=== PATIENT | female | born 1975 ===

== ENCOUNTER 2020-07-20 16:14 | Outpatient (REF) | payer OTHER, SELFPAY ==
[2020-07-20 16:52] LABS: MANUAL DIFF FLAG NO
[2020-07-20 16:54] LABS: Basophils Percent Auto 0.5 % (0-2); Eosinophils Absolute Auto 0.2 X10*3/uL (0.0-0.4); Eosinophils Percent Auto 2.4 % (0-4); Hematocrit 35.5 % (37-47); Hemoglobin 10.3 g/dl (12.0-16.0); Imm Gran Abs Auto 0.03 X10*3/uL (0.00-0.03); Imm Gran Pct Auto 0.5 % (0.0-0.4); Lymphocytes Absolute Auto 1.8 X10*3/uL (1.2-4.9); Lymphocytes Percent Auto 28.8 % (20-40); Mean Corpuscular Hemoglobin 21.1 pg (27.0-33.0); Mean Corpuscular Volume 72.7 fL (80-98); Mean Platelet Volume 9.3 fL (9.4-12.3); Monocytes Absolute Auto 0.4 X10*3/uL (0.1-1.2); Monocytes Percent Auto 6.3 % (2-11); Neutrophils Absolute Auto 3.8 X10*3/uL (2.0-8.3); Neutrophils Percent Auto 61.5 % (45-73); Platelet Count 452 X10*3/uL (160-400); Red Blood Count 4.88 X10*6/uL (4.20-5.50); Red Cell Distribution Width 18.8 % (11.0-16.0); White Blood Count 6.2 X10*3/uL (4.8-10.8)
[2020-07-20 17:04] LABS: D Dimer 244 NG/ML
[2020-07-20 17:18] LABS: Alanine Aminotransferase 11 U/L (0-31); Albumin Level 4.2 g/dL (3.5-5.0); Alkaline Phosphatase 94 U/L (39-117); Aspartate Amino Transferase 16 U/L (5-31); Bilirubin Total 0.3 mg/dL (0.0-1.0); Blood Urea Nitrogen 14 mg/dL (9-16); Estimated Glomerular Filt Rate > 60; Glucose Random 100 mg/dL (60-115); Total Protein 7.4 g/dL (6.5-8.0)
[2020-07-20 17:22] LABS: Anion Gap 11 (12-20); Carbon Dioxide 26 mmol/L (22-29); Chloride 106 mmol/L (96-108); Potassium 4.4 mmol/L (3.3-5.1); Sodium 139 mmol/L (135-145)
[2020-07-20 17:24] LABS: B Type Natriuretic Peptide 45 pg/mL (<100); Troponin-I High Sensitivity < 3.5 ng/L (<3.5-17.0)
[2020-07-20 17:39] LABS: TSH reflex Free T4 1.91 uIU/mL (0.32-4.0)
== END 2020-07-20 16:15 | disposition home or self-care (01) ==
LOC: HO.LAB 16:14
PROVIDERS: PCP Internal Medicine; Visit Provider Nurse Practitioner Family
DX: I49.8 Other specified cardiac arrhythmias (principal)
CPT/HCPCS: 36415; 80053; 83880; 84443; 84484; 85025; 85379

== ENCOUNTER 2020-07-24 11:31 | Outpatient (REF) | payer OTHER, SELFPAY ==
--- NOTE | ~2020-07-24 | US_ITS ---
EXAMINATION: US VENOUS ULTRASOUND WITH DOPPLER LOWER EXTREMITY, LEFT CLINICAL INFORMATION: Pain left lower leg COMPARISON: None TECHNIQUE: Ultrasound of the deep veins is performed from the hip to the calf with compression sonography and color and pulse Doppler assessment. Spectral analysis with color-flow imaging is performed. FINDINGS: There is normal venous compression and respiratory variation and augmented flow. The visualized common femoral vein, superficial femoral vein, profunda femoral vein, popliteal vein, and the trifurcation region shows no evidence of deep venous thrombosis. There is no significant popliteal fossa cyst. If the patient's symptoms persist, followup ultrasound in 5 days 7 days might be of value to exclude proximal propagation from a non-visualized calf vein. US/US venous duplex LE LT IMPRESSION: No DVT demonstrated in the left lower extremity.
== END 2020-07-24 11:32 | disposition home or self-care (01) ==
LOC: HO.HMGCX 11:31
PROVIDERS: PCP Internal Medicine; Visit Provider Nurse Practitioner Family
DX: M79.662 Pain in left lower leg (principal)
CPT/HCPCS: 93971

== ENCOUNTER 2020-11-18 15:45 | Outpatient (REF) | payer OTHER, SELFPAY ==
--- NOTE | ~2020-11-18 | US_ITS ---
EXAMINATION: US VENOUS ULTRASOUND WITH DOPPLER LOWER EXTREMITY, RIGHT CLINICAL INFORMATION: Right leg pain COMPARISON: None TECHNIQUE: Ultrasound of the deep veins is performed from the hip to the calf with compression sonography and color and pulse Doppler assessment. Spectral analysis with color-flow imaging is performed. FINDINGS: There is normal venous compression and respiratory variation and augmented flow. The visualized common femoral vein, superficial femoral vein, profunda femoral vein, popliteal vein, and the trifurcation region shows no evidence of deep venous thrombosis. There is superficial thrombophlebitis seen in a varicosity arising from the greater saphenous vein in the distal thigh and below the knee . US/US venous duplex LE RT IMPRESSION: No DVT demonstrated in the right lower extremity. Superficial thrombophlebitis. Findings were communicated by the nuclear medicine chief technologist at the completion of the exam.
== END 2020-11-18 15:46 | disposition home or self-care (01) ==
LOC: HO.HMGCX 15:45
PROVIDERS: PCP Internal Medicine; Visit Provider Nurse Practitioner Family
DX: M79.604 Pain in right leg (principal); M79.89 Other specified soft tissue disorders
CPT/HCPCS: 93971

== ENCOUNTER → 2020-12-01 13:31 | Outpatient (REF) | payer OTHER, SELFPAY ==
--- NOTE | 2020-12-01 13:45 | ECG_ITS ---
Hook-up date: 2020-12-01 13:37:00 Duration: 47:59:00 Test Indications: ARRHYTHMIAS Medications: 939111 QRS complexes 4 Ventricular ectopics which represent <1 % of total QRS comp. 66 Supraventricular ectopics which represent <1 % of total QRS comp. * Paced QRS complexs which represent % of total QRS comp. VENTRICULAR ECTOPY 4 Isolated 0 Bigeminal Cycles 0 Couplets 0 Runs 0 Beats in Runs * Beats LONGEST at * BPM at :: -- * Beats FASTEST at * BPM at :: -- SUPRAVENTRICULAR ECTOPY 55 Isolated 1 Couplets 2 Runs 9 Beats in Runs 6 Beats LONGEST at 127 BPM at 09:26:42 2020-12-02 6 Beats FASTEST at 127 BPM at 09:26:42 2020-12-02 HEART RATES 58 MIN at 09:05:58 2020-12-02 88 AVG 154 MAX at 13:40:33 2020-12-01 LONGEST RR 1.0720 secs at 09:05:57 2020-12-02 S-T LEVELS Channel 1 - 128 mm at 13:37:00 2020-12-01 - 128 mm at 13:37:00 2020-12-01 Channel 2 - 128 mm at 13:37:00 2020-12-01 - 128 mm at 13:37:00 2020-12-01 Channel 3 - 128 mm at 03:25:61 -- - 128 mm at 03:25:61 Underlying rhythm is sinus; Average ventricular rate 88/min; range 58-154/min; Rare Premature atrial complexes ; Premature ventricular complexes ; No sustained arrhythmias; Patient did not report any symptoms in the diary Referred By: Lanie Gates Overread By: CHIVO HUANG
== END ==
LOC: HO.CARD 13:31
PROVIDERS: Visit Provider Nurse Practitioner Family
DX: I49.8 Other specified cardiac arrhythmias (principal)
CPT/HCPCS: 93225; 93226

== ENCOUNTER 2021-12-30 21:25 | Emergency (ER) | payer OTHER, SELFPAY ==
--- NOTE | ~2021-12-30 | CT_ITS ---
EXAMINATION: CT HEAD WITHOUT CONTRAST CLINICAL INFORMATION: Numbness. COMPARISON: None TECHNIQUE: Contiguous axial imaging was performed from the skull base to vertex without intravenous administration of contrast. Coronal and sagittal reformatted images are performed at CT scanner This CT examination was performed using dose optimization techniques as appropriate, variously including the following: *Automated exposure control *Adjustment of mA and/or kV according to patient size (this includes techniques or standardized protocols for targeted exams where dose is matched to indication/reason for exam; i.e. extremities or head) *Use of iterative reconstruction technique DLP: 672 mGy-cm FINDINGS: There is no evidence of acute intracranial hemorrhage or territorial infarction. No abnormal mass effect or midline shift is seen. Shanks to white matter differentiation is well preserved. No extra-axial fluid collections are identified. The ventricles are normal in size. There is no abnormal attenuation within the brain parenchyma. The osseous structures and soft tissues are normal. The mastoid air cells and visualized portions of the paranasal sinuses are well aerated. CT/CT head/brain wo con IMPRESSION: No acute intracranial pathology.
[2021-12-30 21:29] VITALS: BP 136/80; PULSE 117; RESP 18; TEMP 36.6; O2SAT 98; BMI 51.1
--- NOTE | 2021-12-30 21:53 | ED_ITS ---
HPI - Neuro Symptoms/Deficit General Chief Complaint: Neuro Symptoms/Deficit Stated Complaint: Numbness and weakness left side Time Seen by Provider: 12/30/21 21:53 Source: patient Mode of arrival: ambulatory Limitations: no limitations History of Present Illness HPI Narrative: Patient has remote history of migraine with occasional headaches took cannabis bite instead of 1, took 2 of them and went to sleep at 16:00 woke up 2 hours prior to arrival and noticed funny feeling on the left side no weakness had difficulty in speaking, at the time of arrival patient speaking normal no deficit was noticed patient ambulatory patient denies any headache no nausea no vomiting denies any anxiety Related Data Home Medications Medication Instructions Recorded Confirmed aspirin 81 mg tablet,delayed 243 mg PO DAILY 11/23/20 release Previous Rx's Medication Instructions Recorded ibuprofen 600 mg tablet 600 mg PO TID 7 days #21 tabs 11/23/20 Allergies Allergy/AdvReac Type Severity Reaction Status Date / Time hydrocodone [From VICODIN] Allergy Intermediate N/V Verified 12/30/21 21:29 DIZZINESS oxycodone [From PERCOCET] Allergy Intermediate N/V, Verified 12/30/21 21:29 DIZZINESS acetaminophen [Percocet] Allergy Unknown GI upset Verified 12/30/21 21:29 Pt states no food allergies Allergy Unknown unknown Uncoded 11/23/20 16:33 Review of Systems Review of Systems: Yes all other systems are reviewed and are negative [facility] Social History Social History Advance Directives: No Advance Directives Information Provided: No Physical Exam Vital Signs: Vital Signs: Last Vital Signs Temp 98.5 F 12/30/21 22:17 Pulse 89 12/30/21 22:17 Resp 18 12/30/21 22:17 BP 129/74 12/30/21 22:17 Pulse Ox 99 12/30/21 22:17 O2 Del Method 12/30/21 22:17 BMI result Body Mass Index 51.1 Appearance: Alert. Oriented X3. No acute distress. And Eyes: PERRLA, No Nystagmus ENT: Pharynx normal. Oral Mucosa moist Neck: Normal inspection. Neck supple. CVS: Normal heart rate and rhythm. Pulses normal. Respiratory: No respiratory distress. Equal air entry bilateral, no wheezing/rales/rhonchi Abdomen: Soft and nontender. Bowel sounds are present, no mass palpable, no CVA tenderness Skin: Skin warm and dry. Normal skin color. Normal skin turgor. Extremities: No lower extremity edema. No calf tenderness Neuro: Oriented X 3. No motor deficit. No sensory deficit.No cerebellar signs , cranial nerves II-XII intact MDM - Neuro Symptoms/Deficit MDM Narrative Medical decision making narrative: Patient with atypical symptoms no signs of severe patient took cannabis bites which is just started taking them instead of taking 1-2 of them likely the cause weak feeling with the CT head rule out CVA which is clinically unlikely head Ct neg for acute Lab Data Labs: Lab Results 12/30/21 Range/Units 22:10 POC Glucose 89 (60-115) mg/dL NIH Stroke Scale Internal: Initial- Upon Arrival Level of Consciousness: Alert Level of Consciousness Questions: Answers both questions correctly Level of Consciousness Commands: Performs both tasks correctly Best Gaze: Normal Visual: No visual loss Facial Palsy: Normal Motor Arm (Right): No drift Motor Arm (Left): No drift Motor Leg (Right): No drift Motor Leg (Left): No drift Limb Ataxia: Absent Sensory: Normal Best Language: No aphasia Dysarthia: Normal Extinction and Inattention: No abnormality Score: 0 Discharge Plan Discharge Clinical Impression: Side effect of drug Patient Disposition: Home, Self-Care Instructions: Adverse Drug Reaction (ED) Additional Instructions: Your symptoms likely from use of cannabis bites Do not take cannabis bites if give you symptoms Prescriptions: No Action aspirin 81 mg tablet,delayed release (DR/EC) 243 mg PO DAILY ibuprofen 600 mg tablet 600 mg PO TID 7 Days Qty: 21 0RF Interventions: ED Discharge Assessment Last Done: 12/30/21 23:18 Discharge Date/Time: 12/30/21 23:20
[2021-12-30 22:14] LABS: Glucose, Whole Blood 89 mg/dL (60-115)
[2021-12-30 22:17] VITALS: BP 129/74; PULSE 89; RESP 18; TEMP 36.9; O2SAT 99
== END 2021-12-30 23:20 | disposition home or self-care (01) ==
PROVIDERS: Emergency Provider Internal Medicine; PCP Internal Medicine
DX: R53.1 Weakness (principal); T40.715A Adverse effect of cannabis, initial encounter; Y92.9 Unspecified place or not applicable
CPT/HCPCS: 70450; 82947; 99283; 99284

== ENCOUNTER 2024-02-07 13:08 | Outpatient (AMB) | payer OTHER, SELFPAY ==
--- NOTE | 2024-02-07 13:11 | A.OFFPC_ITS ---
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 MANAGER MARKETING- semaglutide (weight loss) 2.4 mg subcut QWEEK Tobacco use date assessed: 02/07/24 Dental Screening Dental Screen Date: 02/07/24 Did you have a dental visit in the last 12 months?: Yes Did you have a dental problem in the last 6 months where you did not have access to dental care?: No Was dental information given to patient?: Patient has dentist HPI HPI Comments History of Present Illness Details 48-year-old female with migraines, right lower leg superficial thrombophlebitis (2020), PAC & PVC (holter 2020), anemia, obesity, insomnia, rectocele, Vit d def, iron def anemia s/p gastric bypass x 2, panniculectomy, breast lift Social: 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 Reports that she has not had routine medical care in several years. She is currently taking semaglutide that she has been paying for out of her pocket from the [employer] shop in [place]. Her current dosing is around 2 mg. She would like to have this filled She is on no other medications; aware she should be taking at least a multivitamin status post gastric bypass. Reports a history of anemia however had GI upset & constipation with the iron so she stopped taking. Has a rectocele & would like this looked at by GI. Suffers from insomnia, taking Benadryl and Tylenol PM to sleep. Reports that she has tried Ambien in the past and had memory issues. Opth: wears glasses, UTD on eye exam 2023 Plan screening labs today - see below. Start Vitamin D QD, MVI with Iron. Repeat labs in 4 months. Start Trazodone 25 mg po PRN insomnia Tdap administered Mammogram ordered Gastroenterology and herpetology teacher referrals placed Return to the office in 4 weeks to follow up on labs as well as treatment for insomnia, sooner as needed [facility] Medical History (Updated 02/08/24 @ 16:27 by Margie Riley SR. MANAGER MARKETING-) Palpitations No pertinent family history Arthritis GERD (gastroesophageal reflux disease) Surgical History (Updated 02/07/24 @ 14:02 by Edward Mckenna MA) Hx of breast reduction, elective S/P panniculectomy H/O gastric bypass Family History (Updated 02/07/24 @ 13:17 by Edward Mckenna MA) Mother Mental health disorder Substance abuse Social History (Updated 02/07/24 @ 13:18 by Edward Mckenna MA) Household Members: Spouse and Children Both parents involved: No Caregiver staying overnight: No Housing: Apartment Are you a primary career services manager to a significant other at home: No Do you presently have visiting nurse or other home services: No 75 years or older and lives alone: No Patient Tobacco Use Status: Never used Tobacco e-Cigarette/Vaping Use: Never Used service: No Current occupational status: employed Current occupation: RN Cognitive needs: No Hearing needs: No Vision needs: No Questionnaire PHQ-9 Over the last 2 weeks, how often have you been bothered by any of the following problems? 1. Little interest or pleasure in doing things: not at all 2. Feeling down, depressed, or hopeless: not at all 3. Trouble falling or staying asleep, or sleeping too much: nearly every day 4. Feeling tired or having little energy: more than half the days 5. Poor appetite or overeating: more than half the days 6. Feeling bad about yourself - or that you are a failure or have let yourself or your family down: not at all 7. Trouble concentrating on things, such as reading the newspaper or watching television: not at all 8. Moving or speaking so slowly that other people could have noticed. Or the opposite - being so fidgety or restless that you have been moving around a lot more than usual: not at all 9. Thoughts that you would be better off or of hurting yourself in some way: not at all Total score: 7 Depression Screening Interpretation: Negative Depression Screening Done: Yes 40545 - PHQ-9 Billing: Yes Source: Developed by Drs. Geovanny Chaudhary, Avril Sarmiento, Pravin Browne and colleagues, with an educational david from [employer]. Thrive Questionnaire Date Thrive assessed: 02/07/24 I am a: Patient What is your living situation today?: I have a steady place to live Within the past 12 months, did the food you bought not last and you didn't have the money to get more?: Never true Within the past 12 months, did you worry whether your food would run out before you got money to buy more?: Never true Do you have trouble paying for medicines?: No Do you have trouble getting transportation to medical appointments?: No Do you have trouble paying your heating and electricity bill?: No Do you have trouble taking care of your child, family member or friend?: No Do you have trouble with day-to-day activities such as bathing, preparing meals, shopping, managing finances, etc.?: No Are you currently unemployed and looking for a job?: No Are you interested in more education?: No Please select the resources that you would like help with: None Currently or been in a relationship where the following occur: No concerns reported THRIVE Score: 0 AUDIT C Alcohol Use Questionnaire (AUDIT-C) 1. How often do you have a drink containing alcohol?: Never 3. How often do you have six or more drinks on one occasion?: Never Total Score: 0 Score Reviewed/Action Taken: Yes REGAN-7 AMB Questionnaire REGAN-7 Date REGAN - 7 assessed: 02/07/24 Feeling nervous, anxious, or on edge: 0 = Not at all Not being able to stop or control worryin = Not at all Worrying too much about different things: 0 = Not at all Trouble relaxin = Not at all Being so restless that it is hard to sit still: 0 = Not at all Becoming easily annoyed or irritable: 3 = Nearly every day Feeling afraid as if something awful might happen: 0 = Not at all Total REGAN-7 score (0-4 normal; 5-9 mild; 10-14 moderate; 15-21 severe): 3 Source: Developed by Drs. Geovanny Chaudhary, Avril Sarmiento, Pravin Browne and colleagues, with an educational david from [employer]. REGAN-7 Assessment Billing REGAN-7 Assessment Tool: REGAN-7 Assessment 02091 Review of Systems Const Details: Constitutional: Denies fever. Skin: Denies rash. Eye: Denies eye pain. ENMT: Denies sore throat and nasal congestion. Respiratory: Denies shortness of breath and cough. Gastrointestinal: Denies nausea, vomiting or abdominal pain. Cardiovascular: Denies chest pain and syncope. Genitourinary: Denies dysuria. Musculoskeletal: Denies back pain and extremity pain. Neurologic: Denies headaches, confusion, and weakness. Psychiatric: Denies suicidal thoughts and substance abuse. Allergy/ Immunologic: Denies impaired immunity. Physical exam (Primary Care) Vital Signs: Last Vital Signs Temp 98.2 F 02/07/24 13:14 Pulse 90 02/07/24 13:14 Resp 14 02/07/24 13:14 BP 114/64 02/07/24 13:14 Pulse Ox 100 02/07/24 13:14 Oxygen Delivery Method Room Air 02/07/24 13:14 BMI result Body Mass Index 41.6 BMI Assessment/Plan discussion: High BMI High, discussed plan: lifestyle and weight reduction Tobacco/Smoking Status: Tobacco use Status Tobacco use date assessed 02/07/24 02/07/24 13:19 Patient Tobacco Use Status Never used Tobacco 02/07/24 13:19 e-Cigarette/Vaping Use Never Used 02/07/24 13:19 PHQ-9: PHQ-9 Score PHQ-9: Total score 7 02/07/24 14:47 Depression Screening Interpretation: Negative Thrive Assessment: Date of Thrive Assessment Date Thrive assessed 02/07/24 02/07/24 14:02 Currently or been in a relationship where the following occur: No concerns reported Const Other: General: Well developed, well nourished, in no acute distress. Appears stated age. Head: Normocephalic, atraumatic. Eyes: Pupils are equal, round and reactive to light and accommodation. Conjunctivae are clear. Vision grossly normal. Ears: TMs clear AU, EACS WNL Nose: Patent, without discharge. Mouth: There are no ulcers or lesions noted. No inflammation, no post nasal drip, no plaques nor exudates. Neck: Supple, no adenopathy or thyromegaly. Lungs: Clear to auscultation bilaterally. No rales, rhonchi or wheeze noted. Good air flow in all mcintyre. Heart: Regular rate and rhythm. No murmurs, click, rubs or gallops are noted. Abdomen: Bowel sounds present in all quadrants. The abdomen is soft, nontender, with no masses or organomegaly noted. No hernias are noted. Musculoskeletal: Joints are nontender, without swelling, redness, or effusions. Range of motion is observed to be normal. Pulses: Peripheral pulses are equal and palpable bilaterally. Extremities: No clubbing, cyanosis noted. Trace nonpitting edema BLE Neurologic: Gait and station normal. Cranial Nerves 2-12 intact. Motor strength grossly symmetrical and intact. No sensory loss. Balance normal. Skin: No rashes, ulcers, or lesions noted. Turgor is good. Skin color is good. Hair and nails are without abnormalities. Psych: Normal eye contact, affect and mood appropriate, and normal interactions. Patient is alert and appropriate to context. Immunizations Boostrix Tdap 2.5 Lf unit-8 mcg-5 Lf/0.5 mL intramuscular syringe [facility] Performing Location: [facility] Family Medicine Administered by: Sweetie Galvan RN on 02/07/24 14:11 Dose Route Admin Location Dispensed Lot Number Expiration Date NDC Lead Blender 0.5 mL IM Left Deltoid 0.5 mL [id number] 02/20/26 54071-614-82 Traansmission VIS Given Date VIS Provided VIS Publication Date 02/07/24 Single Vaccine 20 Eligibility Eligibility Date Funding Source Not [facility] Eligible 02/07/24 Private Results Reviewed Results Reviewed: RUN: 02/08/24 2506 PAGE 1 [facility] [address] [place] [id number] Contact Center Director: Don Sauceda M.D. Specimen Inquiry Name: Tamra Monzon Age/Sex: 48/F : 1975 Unit#: [id number] Attend Dr: Margie Riley Re02/07/24 Status: DEP REF Location: [facility] Disch: SPEC : [id number] BEV: 02/07/24 STATUS: COMP REQ : [id number] RECD: 02/07/[address]: Margie Riley COMP: 02/07/24-1406 ENTERED: 02/07/24 [facility] DR: ORDERED: CBC No Diff Test Result Flag Reference WBC 6.4 4.8-10.8 X10*3/uL RBC 4.35 4.20-5.50 X10*6/uL HGB 8.4 L 12.0-16.0 g/dl HCT 29.0 L 37.0-47.0 % MCV 66.7 L 80.0-98.0 fL MCH 19.3 L 27.0-33.0 pg MCHC 29.0 L 31.0-35.0 g/dl RDW 19.6 H 11.0-16.0 % PLT 354 160-400 X10*3/uL MPV 9.6 9.4-12.3 fL NRBC Pct Auto 0.0 0.0-0.2 /100WBC NRBC Abs Auto 0.000 0.0-0.012 X10*3/uL RUN: 02/08/24 8130 PAGE 1 [facility] [address] [place] [address] Contact Center Director: Don Sauceda M.D. Specimen Inquiry Name: Tamra Monzon Age/Sex: 48/F : 1975 Unit#: [id number] Attend Dr: Margie Riley Re02/07/24 Status: DEP REF Location: [facility] Disch: SPEC : [id number] BEV: 02/07/24-1410 STATUS: COMP REQ : [id number] RECD: 02/07/24-[address] COMP: 02/07/24-1819 ENTERED: 02/07/24-[address]: ORDERED: CMP, IRON PROF, Vitamin D 25-OH, TSH Rflx Test Result Flag Reference Sodium 137 135-145 mmol/L Potassium 3.8 3.3-5.1 mmol/L CL 108 96-108 mmol/L CO2 24 22-29 mmol/L Gap 9 L 12-20 BUN 16 9-16 mg/dL Creat 0.70 0.5-1.4 mg/dL EGFR > 60 NOTE: For -Italian individuals, multiply the result by 1.210. Chronic Kidney Disease: Estimated GFR < 60 mL/min/1.73m2 Severe Kidney Disease: Estimated GFR < 15 mL/min/1.73m2 Glucose, Random 86 60-115 mg/dL CA 8.9 8.4-10.2 mg/dL Iron 12 L 30-160 mcg/dL TIBC 397 228-428 mcg/dL Saturation 3 L 15-50 % UIBC 385 ug/dL Total Bili 0.3 0.0-1.0 mg/dL AST (GOT) 19 5-31 U/L ALT (GPT) 14 0-31 U/L Protein, Total 7.1 6.5-8.0 g/dL Alb 3.8 3.5-5.0 g/dL Alk Phos 77 39-117 U/L Vit D 25-OH Tot 13.3 L >30 ng/mL Health Based Reference Values* < 20 ng/mL Deficient 20-30 ng/mL Insufficient > 30 ng/mL Sufficient *Amirah ROBERTO. N Engl J Med. 2007;357:266-280 Care must be taken in interpreting Vitamin D results from different laboratories and methodologies. Published data demonstrated that results from patients undergoing hemodialysis may show a negative bias when tested with various automated 25-OH vitamin D assays when compared to LC-MS/MS. When testing samples from patients whose predominant form of Vitamin D is Vitamin D2, such as patients receiving Vitamin D2 supplementation, results that are subtherapeutic should be confirmed with another method such as LC-MS/MS. TSH 2.40 0.32-4.0 uIU/mL END OF REPORT RUN: 02/08/24 9114 PAGE 1 [facility] [address] [place] [id number] Contact Center Director: Don Sauceda M.D. Specimen Inquiry Name: Tamra Monzon Age/Sex: 48/F : 1975 Unit#: [id number] Attend Dr: Margie Riley Re02/07/24 Status: DEP REF Location: [id number] Disch: SPEC : [id number] BEV: 02/07/24 STATUS: COMP REQ : [id number] RECD: 02/07/[address] [facility] [address]: Margie RileyPLACHO COMP: 02/07/24 ENTERED: 02/07/24-1406 [facility] DR: ORDERED: MICARU Test Result Flag Reference Creat, Ur 76.94 mg/dL Microalbumin Ur < 5.0 mg/L Alb/Creat Ratio Test not performed <30 ug/mg cr Unable to calculate albumin/creatinine ratio due to low microalbumin or creatinine result. END OF REPORT END OF REPORT Assessment and Plan Assessment & Plan (1) Encounter for general adult medical examination with abnormal findings: Code(s): Z00.01 - Encounter for general adult medical examination with abnormal findings (2) Morbid obesity with BMI of 40.0-44.9, adult: Code(s): E66.01 - Morbid (severe) obesity due to excess calories; Z68.41 - Body mass index [BMI] 40.0-44.9, adult (3) Cervical cancer screening: Code(s): Z12.4 - Encounter for screening for malignant neoplasm of cervix (4) Colon cancer screening: Code(s): Z12.11 - Encounter for screening for malignant neoplasm of colon (5) Rectocele: Code(s): N81.6 - Rectocele (6) Insomnia: Code(s): G47.00 - Insomnia, unspecified Qualifiers: Insomnia type: primary Qualified Code(s): F51.01 - Primary insomnia (7) Iron deficiency anemia: Code(s): D50.9 - Iron deficiency anemia, unspecified Qualifiers: Iron deficiency anemia type: inadequate dietary iron intake Qualified Code(s): D50.8 - Other iron deficiency anemias (8) Vitamin D deficiency: Code(s): E55.9 - Vitamin D deficiency, unspecified Orders: Orders Hemoglobin A1c 02/07/24 E66.01 - Morbid (severe) obesity due to excess calories, Z00.00 - Encounter for general adult medical examination without abnormal findings, Z68.41 - Body mass index [BMI] 40.0-44.9, adult IRON PROFILE 02/07/24 E66.01 - Morbid (severe) obesity due to excess calories, Z00.00 - Encounter for general adult medical examination without abnormal findings, Z68.41 - Body mass index [BMI] 40.0-44.9, adult Microalbumin, Random (w Creat) 02/07/24 E66.01 - Morbid (severe) obesity due to excess calories, Z00.00 - Encounter for general adult medical examination without abnormal findings, Z68.41 - Body mass index [BMI] 40.0-44.9, adult TSH reflex Free T4 02/07/24 E66.01 - Morbid (severe) obesity due to excess calories, Z00.00 - Encounter for general adult medical examination without abnormal findings, Z68.41 - Body mass index [BMI] 40.0-44.9, adult Vitamin B12 and Folate 02/07/24 E66.01 - Morbid (severe) obesity due to excess calories, Z00.00 - Encounter for general adult medical examination without abnormal findings, Z68.41 - Body mass index [BMI] 40.0-44.9, adult Vitamin D 25-OH Total 02/07/24 E66.01 - Morbid (severe) obesity due to excess calories, Z00.00 - Encounter for general adult medical examination without abnormal findings, Z68.41 - Body mass index [BMI] 40.0-44.9, adult MM tomosynthesis screening BI 02/07/24 Z12.31 - Encounter for screening mammogram for malignant neoplasm of breast TDaP Immunization 02/07/24 Z23 - Encounter for immunization Vitamin D 25-OH Total 05/15/24 D50.8 - Other iron deficiency anemias, E55.9 - Vitamin D deficiency, unspecified Complete Blood Count no Diff 02/07/24 E66.01 - Morbid (severe) obesity due to excess calories, Z00.00 - Encounter for general adult medical examination without abnormal findings, Z68.41 - Body mass index [BMI] 40.0-44.9, adult Comprehensive Met. Panel 02/07/24 E66.01 - Morbid (severe) obesity due to excess calories, Z00.00 - Encounter for general adult medical examination without abnormal findings, Z68.41 - Body mass index [BMI] 40.0-44.9, adult LDL Cholesterol Direct 02/07/24 E66.01 - Morbid (severe) obesity due to excess calories, Z00.00 - Encounter for general adult medical examination without abnormal findings, Z68.41 - Body mass index [BMI] 40.0-44.9, adult Complete Blood Count no Diff 05/15/24 D50.8 - Other iron deficiency anemias, E55.9 - Vitamin D deficiency, unspecified IRON PROFILE 05/15/24 D50.8 - Other iron deficiency anemias, E55.9 - Vitamin D deficiency, unspecified Referrals Gastroenterology Referral N81.6 - Rectocele, Z12.11 - Encounter for screening for malignant neoplasm of colon ROOM SERVICE RUNNER Referral Z12.4 - Encounter for screening for malignant neoplasm of cervix Medications: New trazodone 25 mg (1/2 x 50 mg) PO BEDTIME PRN 30 tabs 0RF insomnia multivitamin with iron 1 tab PO DAILY 90 tabs 2RF cholecalciferol (vitamin D3) 125 mcg PO DAILY 90 caps 2RF Patient Instructions: Walk-In Care (Urgent Care): We Make it Easy Walk-in for urgent medical issues such as: ? Seasonal Allergies ? Insect Bites ? Cough ? Diarrhea ? Acute Asthma Attacks ? Back, Knee or Joint Pain ? Ear Infection ? Fever without a Rash ? Headaches ? Nausea ? [place] Eye, Rash or Skin Irritation ? Sore Throat ? Sports Physicals ? Vomiting Most insurances are accepted. Patients do not need to be part of the [facility] to seek care at the walk-in clinic. Locations [address] [place] [address] , [place] [address] ? [phone] [facility] Walk-In Care in [place] provides services to ages 18 and over. Open Monday-Monday: 8 a.m. to 5 p.m. and Monday: 9 a.m. to 3 p.m.* *Hours may vary due to staffing availability. To confirm Walk-In Care hours in [place], please call [phone]. [address] [place] [address] ? [phone] [facility] Walk-In Care in [place] provides services to ages 12 and over. Open Monday-Monday: 8 a.m. to 5 p.m. Hours may vary due to staffing availability. To confirm Walk-In Care hours in [place], please call [phone]. LABORATORY SERVICES: [facility] Lab ? Primary Location [address] [place] [address] Monday through Monday 6:00 AM ? 5:00 PM Monday 7:00 AM ? 11:00 AM* [phone] The [facility] Lab is centrally located near the front entrance of the [facility] for easy outpatient access. Convenient parking is provided for outpatients. *Hours may vary due to staffing availability. To confirm Laboratory hours for any location, please call [phone]. Offsite Location For your convenience, we offer offsite laboratory draw stations at the following locations: [address] [facility] [place] ? [facility] [address], [address], [place] Monday through Monday 7:30 AM ? 1:00 PM* [phone] *Hours may vary due to staffing availability. To confirm Laboratory hours for any location, please call [phone]. [place] ? [facility] [address] [facility] Monday through Monday 6:00 AM ? 3:30 PM* Monday 6:30 AM ? 3 PM* [phone] *Hours may vary due to staffing availability. To confirm Laboratory hours for any location, please call [phone] [place] [address] Monday through Monday 7:30 AM ? 4:00 PM* [phone] *Hours may vary due to staffing availability. To confirm Laboratory hours for any location, please call [phone] [place] [address] Monday through 9:00 AM ? 4:00 PM* *Hours may vary due to staffing availability. To confirm Laboratory hours for any location, please call [phone]. Appointments are not necessary. Walk-ins are welcome. Like all the departments throughout the [place], our Lab undergoes frequent reviews to ensure the quality and accuracy of test results, and our staff takes special pride in its status as a nationally accredited facility. Patient Portal: ONE PATIENT. ONE RECORD. BETTER CARE. [facility] has a fully integrated, cutting- edge mobile electronic health information system that has revolutionized the way we care for our patients and manage our organization. This system improves communication and coordination enabling us to provide safe, higher-quality care, and an overall positive experience for staff and patients. Our first priority, as always, is to deliver the highest quality care possible. The system is running in the background supporting that priority. This portal is for all [facility] services and practices. If you are experiencing any technical difficulties with enrolling or logging into the Patient Portal please complete the [facility] Patient Portal Technical Support Form. [facility] now offers a new secure on-line interactive tool for patients to review their health information ? Patient Portal. This interactive web portal will enable patients and their families to take an active role in their care by providing easy, secure access to their health information via the internet. The Patient Portal provides patients with instant access to their health information, including laboratory results, medications, allergies, demographic information, visit history, and more. In addition to managing their own care, parents and health care proxies with authorized consent will appreciate the ability to access the records of those individuals for whom they provide care. Please note: if you wish to gain access (Proxy) to another patient?s portal, you will be required to come to the Medical Records Department in person at [facility]. Both the patient giving proxy access and the proxy will need to provide photo identification and complete the appropriate authorization. The Patient Portal also allows track their appointments online. The [facility] Patient Portal also saves patients time by allowing them to submit updates to their demographic and contact information prior to their visits. Portal email notifications will also alert patients to any new activity on their portal, such as test results and new appointments. In order to initially enroll in the [facility] Patient Portal, you will need to enter some required information including the following: ? your [facility] Medical Record number ? your personal home email address ? name ? date of Please note: In order to enroll in the [facility] Patient Portal, we need to have your email address on file in your electronic medical record. The email address needs to be specific for one person (yourself) in order for your Portal enrollment to be successful. You can update your email address in person with our Registration staff when you are registering for a hospital visit. Otherwise, you will need to come to the Health Information Management (Medical Records) Department at [facility]. We are open from Monday ? Monday from 7:30 a.m. ? 4:30 p.m. You will be required to present a photo id. Once you have successfully enrolled in the Patient Portal, you will receive a one-time user id and password for the Portal, sent to your email address. This will allow you to log into the Patient Portal within 99 hrs and reset your own logon id and password, and define personal security questions. Once your permanent login and password have been set, you can log into the [facility] Patient Portal at any time via the blue button above or from the Portal Logon button on any page of the [facility] website. [facility] and [facility] encourage all of our patients to enroll in Patient Portal as it presents a valuable opportunity for patients and their families to actively participate in their care and stay healthy Welcome to [facility]. We look forward to working with you. Health screenings for women You should visit your health care provider from time to time, even if you are healthy. The purpose of these visits is to: Screen for medical issues Assess your risk for future medical problems Encourage a healthy lifestyle Update vaccinations and other preventive care services Help you get to know your provider in case of an illness Information Even if you feel fine, you should still see your provider for regular checkups. These visits can help you avoid problems in the future. For example, the only way to find out if you have high blood pressure is to have it checked regularly. High blood sugar and high cholesterol levels also may not have any symptoms in the early stages. A simple blood test can check for these conditions. There are specific times when you should see your provider or receive specific health screenings. The [place] Preventive Services Task Force publishes a list of recommended screenings. Below are screening guidelines for women ages 18 to 39. BLOOD PRESSURE SCREENING Your blood pressure should be checked at least once every 3 to 5 years if: Your blood pressure is in the normal range (top number less than 120 mm Hg and bottom number less than 80 mm Hg) You don't have risk factors for high blood pressure Ask your provider if you need your blood pressure checked more often if: The top number is 120 to 129 mm Hg or the bottom number is 70 to 79 mm Hg You have diabetes, heart disease, kidney problems, are overweight, or have certain other health conditions You have a first-degree relative with high blood pressure You are Black You had high blood pressure during a If the top number is 130 mm Hg or greater or the bottom number is 80 mm Hg or greater, this is considered stage 1 hypertension. Schedule an appointment with your provider to learn how you can reduce your blood pressure. Watch for blood pressure screenings in your area. Ask your provider if you can stop in to have your blood pressure checked. BREAST CANCER SCREENING Experts do not agree about the benefits of breast self-exams in finding breast cancer or saving lives. Talk to your provider about what is best for you. A screening mammogram is not recommended for most women under age 40. Your provider may discuss and recommend mammograms, MRI scans, or ultrasounds if you have an increased risk for breast cancer, such as: A mother or sister who had breast cancer at a young age (most often starting screening earlier than the age the close relative was diagnosed) You carry a high-risk genetic marker CERVICAL CANCER SCREENING Cervical cancer screening should start at age 21 years unless your provider advises otherwise. After the first test: Women ages 21 through 29 should have a Pap test every 3 years. Exoprts do not agree on whether HPV testing is recommended for this age group. Women ages 30 through 65 should be screened with either a Pap test every 3 years or the HPV test every 5 years or both tests every 5 years (called cotesting ). Women who have been treated for precancer (cervical dysplasia) should continue to have Pap tests for 20 years after treatment or until age 65, whichever is longer. If you have had your uterus and cervix removed (total hysterectomy), and you have not been diagnosed with cervical cancer or precancer (high grade cervical neoplasia), you do not need cervical cancer screening. CHOLESTEROL SCREENING Cholesterol screening should begin at: Age 45 for women with no known risk factors for coronary heart disease Age 20 for women with known risk factors for coronary heart disease Repeat cholesterol screening should take place: Every 5 years for women with normal cholesterol levels More often if changes occur in lifestyle (including weight gain and diet) More often if you have diabetes, heart disease, kidney problems, or certain other conditions DIABETES SCREENING You should be screened for diabetes starting at age 35 and then repeated every 3 years if you have no risk factors for diabetes. Screening may need to start earlier and be repeated more often if you have other risk factors for diabetes, such as: You have a first degree relative with diabetes. You are overweight or have obesity. You have high blood pressure, prediabetes, or a history of heart disease. Screening for diabetes should be done if you are planning to become and you are overweight and have other risk factors such as high blood pressure. DENTAL EXAM Go to the dentist once or twice every year for an exam and cleaning. Your dentist will evaluate if you need more frequent visits. EYE EXAM Have an eye exam every 5 to 10 years before age 40. If you have vision problems, have an eye exam every 2 years or more often if recommended by your provider. You should have an eye exam that includes an examination of your retina (back of your eye) at least every year if you have diabetes. IMMUNIZATIONS Commonly needed vaccines include: Flu shot: get one every year. COVID-19 vaccine: ask your provider what is best for you. Tetanus-diphtheria and acellular pertussis (Tdap) vaccine: have one at or after age 19 as one of your tetanus-diphtheria vaccines if you did not receive it as an adolescent. Tetanus-diphtheria: have a booster (or Tdap) every 10 years. Varicella vaccine: receive 2 doses if you never had chickenpox or the varicella vaccine. Hepatitis B vaccine: receive 2, 3, or 4 doses, depending on your exact circumstances. Measles, mumps, and rubella (MMR) vaccine: receive 1 to 2 doses if you are not already immune to MMR. Your provider can tell you if you are immune. Ask your provider about the human papillomavirus (HPV) vaccine if: You have not received the HPV vaccine in the past You have not completed the full vaccine series (you should catch up on this shot) Ask your provider if you should receive other immunizations if you have certain health problems that increase your risk for some diseases such as pneumonia. INFECTIOUS DISEASE SCREENING Women who are sexually active should be screened for chlamydia and gonorrhea up until age 25. Women 25 years and older should be screened for chlamydia and gonorrhea if at high risk. Screening for hepatitis C: All adults ages 18 to 79 should get a one-time test for hepatitis C. people should be screened at every . Screening for human immunodeficiency virus (HIV): All people ages 15 to 65 should get a one-time test for HIV. Depending on your lifestyle and medical history, you may also need to be screened for infections such as syphilis and HIV, as well as other infections. PHYSICAL EXAM All adults should visit their provider from time to time, even if they are healthy. The purpose of these visits is to: Screen for disease Assess your risk of future medical problems Encourage a healthy lifestyle Update your vaccinations and other preventive care services Maintain a relationship with a provider in case of an illness Your height, weight, and BMI should be checked at every exam. During your exam, your provider may ask you about: Depression and anxiety Diet and exercise Alcohol and tobacco use Safety issues, such as using seat belts, smoke detectors, and intimate partner violence Your medicines and risk for interactions SKIN SELF-EXAM Your provider may check your skin for signs of skin cancer, especially if you're at high risk, such as if you: Have had skin cancer before Have close relatives with skin cancer Have a weakened immune system OTHER SCREENING Talk with your provider about colon cancer screening if you have a strong family history of colon cancer or polyps, or if you have had inflammatory bowel disease or polyps yourself. Routine bone density screening of women under 40 is not recommended. Coding Level of Care Code New Pt Prev Care 40-64y(69888) Diagnoses Encounter for general adult medical examination with abnormal findings Z00.01 Morbid obesity with BMI of 40.0-44.9, adult E66.01; Z68.41 Cervical cancer screening Z12.4 Colon cancer screening Z12.11 Rectocele N81.6 Primary insomnia F51.01 Insomnia type: primary Iron deficiency anemia secondary to inadequate dietary iron intake D50.8 Iron deficiency anemia type: inadequate dietary iron intake Vitamin D deficiency E55.9 Additional Codes REGAN-7 Assessment Billing - REGAN-7 Assessment Tool: REGAN-7 Assessment 40781 ([id number])
[2024-02-07 13:14] VITALS: BP 114/64; PULSE 90; RESP 14; TEMP 36.8; O2SAT 100; BMI 41.6
== END 2024-02-07 14:20 | disposition home or self-care (01) ==
PROVIDERS: PCP Nurse Practitioner Family; Visit Provider Nurse Practitioner Family
DX: Z00.01 Encounter for general adult medical examination with abnormal findings (principal); E66.01 Morbid (severe) obesity due to excess calories; Z68.41 Body mass index [BMI] 40.0-44.9, adult; Z12.4 Encounter for screening for malignant neoplasm of cervix; Z12.11 Encounter for screening for malignant neoplasm of colon; N81.6 Rectocele; F51.01 Primary insomnia; D50.8 Other iron deficiency anemias; E55.9 Vitamin D deficiency, unspecified

== ENCOUNTER → 2024-02-07 13:08 | Outpatient (BNVA) | payer OTHER, SELFPAY | PROVIDERS: PCP Nurse Practitioner Family; Visit Provider Nurse Practitioner Family | DX: Z00.01 Encounter for general adult medical examination with abnormal findings (principal) ==

== ENCOUNTER 2024-02-07 14:06 | Outpatient (REF) | payer OTHER, SELFPAY ==
[2024-02-07 17:44] LABS: Hemoglobin 8.4 g/dl (12.0-16.0); Mean Corpuscular Hemoglobin 19.3 pg (27.0-33.0); Mean Corpuscular Volume 66.7 fL (80.0-98.0); Mean Platelet Volume 9.6 fL (9.4-12.3); Platelet Count 354 X10*3/uL (160-400); Red Blood Count 4.35 X10*6/uL (4.20-5.50); Red Cell Distribution Width 19.6 % (11.0-16.0); White Blood Count 6.4 X10*3/uL (4.8-10.8)
[2024-02-07 17:59] LABS: Estimated Average Glucose 97 mg/dL
[2024-02-07 18:02] LABS: Alanine Aminotransferase 14 U/L (0-31); Albumin Level 3.8 g/dL (3.5-5.0); Alkaline Phosphatase 77 U/L (39-117); Anion Gap 9 (12-20); Aspartate Amino Transferase 19 U/L (5-31); Bilirubin Total 0.3 mg/dL (0.0-1.0); Blood Urea Nitrogen 16 mg/dL (9-16); Calcium 8.9 mg/dL (8.4-10.2); Carbon Dioxide 24 mmol/L (22-29); Chloride 108 mmol/L (96-108); Estimated Glomerular Filt Rate > 60; Glucose Random 86 mg/dL (60-115); Iron 12 mcg/dL (30-160); Percent Iron Saturation 3 % (15-50); Potassium 3.8 mmol/L (3.3-5.1); Sodium 137 mmol/L (135-145); Total Iron Binding Capacity 397 mcg/dL (228-428); Total Protein 7.1 g/dL (6.5-8.0); Unsaturated Iron Binding 385 ug/dL
[2024-02-07 18:18] LABS: Creatinine Urine 76.94 mg/dL; Microalbumin Urine < 5.0 mg/L
[2024-02-07 18:20] LABS: Vitamin D 25-OH Total 13.3 ng/mL (>30)
[2024-02-07 18:38] LABS: Vitamin B12 415 pg/mL (200-900)
[2024-02-08 09:53] LABS: LDL Cholesterol Direct 87 mg/dL (<100)
== END 2024-02-07 14:07 | disposition home or self-care (01) ==
LOC: HO.WFDLDS 14:06
PROVIDERS: Visit Provider Nurse Practitioner Family
DX: Z00.01 Encounter for general adult medical examination with abnormal findings (principal); E66.01 Morbid (severe) obesity due to excess calories; Z68.41 Body mass index [BMI] 40.0-44.9, adult; N81.6 Rectocele; F51.01 Primary insomnia; D50.8 Other iron deficiency anemias; E55.9 Vitamin D deficiency, unspecified; Z23 Encounter for immunization
CPT/HCPCS: 36415; 80053; 82306; 82570; 82607; 82746; 83036; 83540; 83721; 84443; 85027; 90471; 90715; 96127

== ENCOUNTER 2024-06-07 14:47 | Outpatient (REF) | payer OTHER, SELFPAY | END 2024-06-07 14:48 | disposition home or self-care (01) | LOC: HO.MAMMO 14:47 | PROVIDERS: PCP Nurse Practitioner Family; Visit Provider Nurse Practitioner Family | DX: Z12.31 Encounter for screening mammogram for malignant neoplasm of breast (principal) | CPT/HCPCS: 77063; 77067 ==

== ENCOUNTER → 2024-06-07 15:00 | Outpatient (BNV) | payer OTHER, SELFPAY | PROVIDERS: PCP Nurse Practitioner Family; Visit Provider Internal Medicine | DX: Z12.31 Encounter for screening mammogram for malignant neoplasm of breast (principal) | CPT/HCPCS: 77063; 77067 ==

== ENCOUNTER 2024-06-13 13:09 | Outpatient (REF) | payer OTHER, SELFPAY ==
[2024-06-14 05:43] LABS: CT PCR NOT DETECTED (Not Detect.); NG PCR NOT DETECTED (Not Detect.)
[2024-06-14 10:21] LABS: Bacterial Vaginosis PCR POSITIVE (Negative); Candida Group PCR NOT DETECTED (Not Detect); Candida glab krusei PCR NOT DETECTED (Not Detect); Trichomonas vaginalis PCR NOT DETECTED (Not Detect)
== END 2024-06-13 13:10 | disposition home or self-care (01) ==
LOC: HO.LAB 13:09
PROVIDERS: PCP Nurse Practitioner Family; Visit Provider Advanced Practice Midwife
DX: Z01.419 Encounter for gynecological examination (general) (routine) without abnormal findings (principal); Z20.2 Contact with and (suspected) exposure to infections with a predominantly sexual mode of transmission; Z87.42 Personal history of other diseases of the female genital tract
CPT/HCPCS: 81515; 87491; 87591

== ENCOUNTER 2024-06-13 13:51 | Outpatient (REF) | payer OTHER, SELFPAY ==
[2024-06-24 10:14] LABS: HPV Genotype 16 Negative (Negative); HPV Genotype 18 Negative (Negative); HPV High Risk Negative (Negative)
== END 2024-06-13 13:52 | disposition home or self-care (01) ==
LOC: HO.LNP 13:51
PROVIDERS: Visit Provider Advanced Practice Midwife
DX: Z01.419 Encounter for gynecological examination (general) (routine) without abnormal findings (principal)
CPT/HCPCS: 87626; 88175

== ENCOUNTER 2024-06-20 08:55 | Outpatient (AMB) | payer OTHER, SELFPAY ==
--- NOTE | 2024-06-20 15:21 | A.OFFPC_ITS ---
Intake Visit Reasons: labs/insomnia Allergies hydrocodone [From VICODIN] Allergy (Intermediate, Verified 06/20/24 15:21) N/V DIZZINESS oxycodone [From PERCOCET] Allergy (Intermediate, Verified 06/20/24 15:21) N/V, DIZZINESS acetaminophen [Percocet] Allergy (Unknown, Verified 06/20/24 15:21) GI upset Pt states no food allergies Allergy (Unknown, Uncoded 06/20/24 15:21) unknown Medication List - Last Reconciled 06/20/24 by Margie Riley, [facility]- cholecalciferol (vitamin D3) 125 mcg PO DAILY metronidazole 500 mg PO BID 7 days multivitamin with iron 1 tab PO DAILY trazodone 25 mg (1/2 x 50 mg) PO BEDTIME PRN Tobacco use date assessed: 06/20/24 Dental Screening Dental Screen Date: 06/20/24 Did you have a dental visit in the last 12 months?: Yes Did you have a dental problem in the last 6 months where you did not have access to dental care?: No Was dental information given to patient?: Patient has dentist HPI HPI Comments History of Present Illness Details TELEVIDEO VISIT USING DOXIMITY 48-year-old female with migraines, right lower leg superficial thrombophlebitis (2020), PAC & PVC (holter 2020), anemia, obesity, insomnia, rectocele, Vit d def, iron def anemia s/p gastric bypass x 2, panniculectomy, breast lift 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 Pap 05/2024, will be having a colpo [place] [facility] next [place] DEXA n/a still getting periods Specialists: [employer] [facility] The patient is a 48 year old female presenting with follow-up Since last visit, had pap, noted to have cervical overgrowth, prompting a scheduled colposcopy for evaluation. The patient expressed concern about this finding. Her recent mammogram results were normal. In addition, she has been managing iron deficiency anemia and vitamin D deficiency, both identified in previous laboratory results. The patient reports taking these supplements more consistently now and denies any gastrointestinal discomfort from them. The patient has also been experiencing insomnia. Previously prescribed trazodone 25mg resulted in adverse effects, including dizziness and prolonged sickness, prompting her to reduce the dosage (12.5mg) Despite initial reluctance, she plans to restart trazodone, splitting the dosage and establishing a routine as prior medications such as Benadryl and Tylenol PM were overused. Reports + rel ief of insomnia w/ use of Traz 12.5mg. Physical Exam limited by Video visit Awake alert NAD scleras nonicteric bilat MMM Speaking in full sentences Smiling, engaging, appropriate Results - Labs: Anemia and vitamin D deficiency noted on previous lab reports. - Tests: Mammogram reported as normal. Discussion Notes We discussed the necessity for a colposcopy due to the cervical overgrowth polina ntified and the implications of further evaluation. I explained the rationale for repeat laboratory tests to monitor anemia and vitamin D levels, ensuring appropriate supplementation dosing. There was a slight improvement noted in her adherence to vitamin D and iron supplementation. The trazodone side effects were addressed, with a plan to potentially reintroduce at a lower dose over the weekend when work obligations are minimal. I reassured her about ongoing coordination of healthcare services, particularly pertaining to sensitive procedures, and offered assistance in arranging referrals if required by insurance. Regular health maintenance, including annual wellness visits, was discussed, with a plan to schedule follow-up post-colposcopy pathology results. Plan - For cervical overgrowth: Proceed with colposcopy and await pathology results; prepare for potential follow-up based on findings. - For iron deficiency anemia: Continue m ultivitamin with iron supplementation; monitor through non-fasting labs. - For vitamin D deficiency: Continue sup plementation with vitamin D. - For insomnia: Titrate dose of trazodon e to manage insomnia effectively; avoid concurrent sedative use; assess response to trazodone at lower dose. - Coordinate advanced care logistics if needed for referral, especially for procedures sensitive to the patient's social circumstances. Patient was informed and verbally consented to the use of an ambient scribe for clinic note documentation during this visit. RTO 1 01/2025 FOR CPE SOONER PRN PFSH Medical History Arthritis GERD (gastroesophageal reflux disease) No pertinent family history Palpitations Surgical History H/O gastric bypass H/O knee surgery Hx of breast reduction, elective S/P panniculectomy Family History Mother Mental health disorder Substance abuse Maternal Aunt History of breast cancer Social History Household Members: Spouse and Children Both parents involved: No Caregiver staying overnight: No Housing: Apartment Are you a primary health care facility administrator to a significant other at home: No Do you presently have visiting nurse or other home services: No 75 years or older and lives alone: No Patient Tobacco Use Status: Never used Tobacco e-Cigarette/Vaping Use: Never Used service: No Current occupational status: employed Current occupation: RN Cognitive needs: No Hearing needs: No Vision needs: No Questionnaire PHQ-9 Over the last 2 weeks, how often have you been bothered by any of the following problems? 1. Little interest or pleasure in doing things: not at all 2. Feeling down, depressed, or hopeless: not at all 3. Trouble falling or staying asleep, or sleeping too much: not at all 4. Feeling tired or having little energy: not at all 5. Poor appetite or overeating: not at all 6. Feeling bad about yourself - or that you are a failure or have let yourself or your family down: not at all 7. Trouble concentrating on things, such as reading the newspaper or watching television: not at all 8. Moving or speaking so slowly that other people could have noticed. Or the opposite - being so fidgety or restless that you have been moving around a lot more than usual: not at all 9. Thoughts that you would be better off or of hurting yourself in some way: not at all Total score: 0 Depression Screening Interpretation: Negative Depression Screening Done: Yes 60695 - PHQ-9 Billing: Yes Source: Developed by Drs. Geovanny Chaudhary, Avril Sarmiento, Pravin Browne and colleagues, with an educational david from [employer]. Thrive Questionnaire Date Thrive assessed: 06/20/24 I am a: Patient What is your living situation today?: I have a steady place to live Within the past 12 months, did the food you bought not last and you didn't have the money to get more?: Never true Within the past 12 months, did you worry whether your food would run out before you got money to buy more?: Never true Do you have trouble paying for medicines?: No Do you have trouble getting transportation to medical appointments?: No Do you have trouble paying your heating and electricity bill?: No Do you have trouble taking care of your child, family member or friend?: No Do you have trouble with day-to-day activities such as bathing, preparing meals, shopping, managing finances, etc.?: No Are you currently unemployed and looking for a job?: No Are you interested in more education?: No Please select the resources that you would like help with: None THRIVE Score: 0 AUDIT C Alcohol Use Questionnaire (AUDIT-C) 1. How often do you have a drink containing alcohol?: Never 3. How often do you have six or more drinks on one occasion?: Never Total Score: 0 Score Reviewed/Action Taken: Yes REGAN-7 AMB Questionnaire REGAN-7 Date REGAN - 7 assessed: 06/20/24 Feeling nervous, anxious, or on edge: 0 = Not at all Not being able to stop or control worryin = Not at all Worrying too much about different things: 0 = Not at all Trouble relaxin = Not at all Being so restless that it is hard to sit still: 0 = Not at all Becoming easily annoyed or irritable: 0 = Not at all Feeling afraid as if something awful might happen: 0 = Not at all Total REGAN-7 score (0-4 normal; 5-9 mild; 10-14 moderate; 15-21 severe): 0 Source: Developed by Drs. Geovanny Chaudhary, Avril Sarmiento, Pravin Browne and colleagues, with an educational david from [employer]. REGAN-7 Assessment Billing REGAN-7 Assessment Tool: REGAN-7 Assessment 88506 Physical exam (Primary Care) Tobacco/Smoking Status: Tobacco use Status Tobacco use date assessed 02/07/24 06/13/24 14:01 Patient Tobacco Use Status Never used Tobacco 06/13/24 14:01 e-Cigarette/Vaping Use Never Used 06/13/24 14:01 Depression Screening Interpretation: Negative Thrive Assessment: Date of Thrive Assessment Date Thrive assessed 02/28/24 06/13/24 14:01 Telehealth Telehealth Telehealth Platform: [employer] Medical Location of provider rendering services: practice address Location of patient: address on file Patient Identification confirmed using: Name, : Yes Telehealth method: video Patient verbally consented to treatment: Yes Patient verbally consented to billing insurance company: Yes Patient informed of any privacy concerns related to visit: Yes Minutes spent on Phone/Video with Pt.: 8 Coding Level of Care Code Tele Est Pt Level 2 (34574) Complex EM visit Add On G2211 Diagnoses Primary insomnia F51.01 Insomnia type: primary Iron deficiency anemia secondary to inadequate dietary iron intake D50.8 Iron deficiency anemia type: inadequate dietary iron intake Vitamin D deficiency E55.9 Colon cancer screening Z12.11 Additional Codes PHQ-9 - 08670 - PHQ-9 Billing: Yes ([id number]) REGAN-7 Assessment Billing - REGAN-7 Assessment Tool: REGAN-7 Assessment 28015 ([id number]) Assessment & Plan Assessment & Plan (1) Insomnia: Code(s): G47.00 - Insomnia, unspecified Category: Medical Qualifiers: Insomnia type: primary Qualified Code(s): F51.01 - Primary insomnia (2) Iron deficiency anemia: Code(s): D50.9 - Iron deficiency anemia, unspecified Category: Medical Qualifiers: Iron deficiency anemia type: inadequate dietary iron intake Qualified Code(s): D50.8 - Other iron deficiency anemias (3) Vitamin D deficiency: Code(s): E55.9 - Vitamin D deficiency, unspecified Category: Medical (4) Colon cancer screening: Code(s): Z12.11 - Encounter for screening for malignant neoplasm of colon Category: Medical Plan . Patient Instructions: Patient Instructions - Continue current supplements: multivitamin with iron and vitamin D. - Plan to start trazodone at a lower dose during the weekend. - Schedule lab tests for CBC, iron, and vitamin D levels during the upcoming visit. - Follow up after the colposcopy and monitor results.
== END 2024-06-20 14:51 | disposition home or self-care (01) ==
LOC: HO.HMCFM 08:55
PROVIDERS: PCP Nurse Practitioner Family; Visit Provider Nurse Practitioner Family
DX: F51.01 Primary insomnia (principal); D50.8 Other iron deficiency anemias; E55.9 Vitamin D deficiency, unspecified; Z12.11 Encounter for screening for malignant neoplasm of colon

== ENCOUNTER → 2024-06-20 08:55 | Outpatient (BNVA) | payer OTHER, SELFPAY | PROVIDERS: PCP Nurse Practitioner Family; Visit Provider Nurse Practitioner Family | DX: F51.01 Primary insomnia (principal); D50.8 Other iron deficiency anemias; E55.9 Vitamin D deficiency, unspecified | CPT/HCPCS: 96127 ==

== ENCOUNTER 2024-06-24 11:43 | Outpatient (AMB) | payer OTHER, SELFPAY ==
--- NOTE | 2024-06-24 11:47 | MHC.OFFVIS ---
Intake Visit Reasons: Cervical biopsy Industrial Custodian: Industrial Custodian Present ([place]) Allergies hydrocodone [From VICODIN] Allergy (Intermediate, Verified 06/20/24 15:21) N/V DIZZINESS oxycodone [From PERCOCET] Allergy (Intermediate, Verified 06/20/24 15:21) N/V, DIZZINESS acetaminophen [Percocet] Allergy (Unknown, Verified 06/20/24 15:21) GI upset Pt states no food allergies Allergy (Unknown, Uncoded 06/20/24 15:21) unknown HPI Comments Details: Presenting referred from Adri Boothe CNM regarding cervical mass seen on pelvic exam. Review of the patient is abnormal Pap smear showed the followin biopsy EMILIE 2, no LEEP done 1997 cervical biopsy atypical squamous cells 2003, 2007 and 2012 Pap smear negative 2013 co testing showed ascus/HPV negative Since then no Pap smear done Co testing done on 06/14/2024: HPV negative, Pap still pending [facility] Medical History Palpitations No pertinent family history Arthritis GERD (gastroesophageal reflux disease) Surgical History H/O knee surgery Hx of breast reduction, elective S/P panniculectomy H/O gastric bypass Family History Mother Mental health disorder Substance abuse Maternal Aunt History of breast cancer Social History Household Members: Spouse and Children Both parents involved: No Caregiver staying overnight: No Housing: Apartment Are you a primary reservoir caretaker to a significant other at home: No Do you presently have visiting nurse or other home services: No 75 years or older and lives alone: No Patient Tobacco Use Status: Never used Tobacco e-Cigarette/Vaping Use: Never Used service: No Current occupational status: employed Current occupation: RN Cognitive needs: No Hearing needs: No Vision needs: No Review of Systems Const All systems reviewed & are unremarkable except as noted in HPI and below Physical Exam General: Yes no CVA tenderness External Female Exam: normal external appearance and normal appearance of the urethra Speculum Exam - Vagina: normal appearance of the vagina, normal palpation, no lesions and no masses Speculum Exam - Cervix: abnormal appearance of the cervix (Cervical lesions at 9, 11, 1 in 6 o'clock), normal palpation, no lesions, no masses and nontender Bimanual exam- vagina & uterus: normal bimanual exam, normal palpation, uterine size normal, normal palpation, uterine shape normal, No Cervical tenderness present and non-tender Bimanual Exam- Adnexa, other: normal adnexae Back/Spine/Pelvis Back: no CVA tenderness Office Procedures Colposcopy Colposcopy: Pre-Procedure Counseling: Before beginning the procedure, I conducted comprehensive counseling with the patient. We thoroughly discussed the procedure itself, including its details, alternatives, and all associated risks. This included but not limited to the following complications such as bleeding, infection, and injury to the vagina, bladder, and vessels, as well as the potential need for transfusion with all its associated risks. Subsequently, the patient sign the consent. Pap smear result: Pending/HPV negative Pelvic exam showed abnormality on the cervix at 9, 11, 1, and 06:00 o'clock Urine test in office = Negative Procedure: During the procedure, the following steps were performed: A speculum was inserted, and acetic acid was applied. Colposcopy was conducted, allowing visualization of the transformation zone. Acetowhite lesions were identified at the 6+9+11+1 o'clock position. Cervical biopsies were obtained from the 6+9+11+1 o'clock position, followed by an endocervical curettage (ECC). Vaginoscopy of the upper vagina revealed no evidence of aceto-white lesions. Hemostasis was achieved using Monsel solution, and the patient tolerated the procedure well. Post-Procedure Instructions: The patient was advised to promptly contact the office or the after hours answering service or go to the emergency room if experiencing a temperature exceeding 100.4?F, abdominal pain, nausea/vomiting, or bleeding. Additionally, the patient was instructed to abstain from vaginal intercourse and bathtub use. The patient confirmed understanding of these instructions. Discharge Instructions: The patient was instructed to schedule a follow-up appointment in 2 weeks for further evaluation and management. Please note that this note was generated using a voice recognition program, and errors may have occurred during correctional casework specialist. 50416-[id number] of cervix including upper vagina with biopsy and ECC Procedure code (CPT) selection complete Results AMB Test Urine AMB Test Urine Negative Last Edit by TREMAINE Fitch on 06/24/24 11:57 Assessment & Plan Assessment & Plan (1) Abnormal cervix finding: Code(s): N88.9 - Noninflammatory disorder of cervix uteri, unspecified Category: Medical Plan: Colposcopy with cervical biopsy and ECC done, see procedure note Orders: Orders AMB Colposcopy Today N88.9 - Noninflammatory disorder of cervix uteri, unspecified AMB HCG Urine Test Today Z32.02 - Encounter for test, result negative Coding Level of Care Code Procedure Only Diagnoses Abnormal cervix finding N88.9 CPT Codes Colposcopy - CPT: 47232-[id number] of cervix including upper vagina with biopsy and ECC ([id number])
== END 2024-06-24 12:20 | disposition home or self-care (01) ==
LOC: HO.HWS 11:43
PROVIDERS: PCP Nurse Practitioner Family; Visit Provider Obstetrics & Gynecology
DX: N88.9 Noninflammatory disorder of cervix uteri, unspecified (principal); Z32.02 Encounter for pregnancy test, result negative
CPT/HCPCS: 57454

== ENCOUNTER 2024-06-24 11:43 | Outpatient (REF) | payer OTHER, SELFPAY | END 2024-06-24 11:44 | disposition home or self-care (01) | LOC: HO.LNP 11:43 | PROVIDERS: PCP Nurse Practitioner Family; Visit Provider Obstetrics & Gynecology | DX: N88.9 Noninflammatory disorder of cervix uteri, unspecified (principal); Z32.02 Encounter for pregnancy test, result negative | CPT/HCPCS: 57454; 81025; 88305 ==

== ENCOUNTER 2024-07-04 14:39 | Outpatient (AMB) | payer OTHER, SELFPAY ==
--- NOTE | 2024-07-04 14:39 | MHC.OFFVIS ---
Intake Visit Reasons: colpo results Allergies hydrocodone [From VICODIN] Allergy (Intermediate, Verified 06/20/24 15:21) N/V DIZZINESS oxycodone [From PERCOCET] Allergy (Intermediate, Verified 06/20/24 15:21) N/V, DIZZINESS acetaminophen [Percocet] Allergy (Unknown, Verified 06/20/24 15:21) GI upset Pt states no food allergies Allergy (Unknown, Uncoded 06/20/24 15:21) unknown HPI Comments Details: The patient is scheduled tele health visit post cervical biopsy follow-up. The patient is doing well with no complaints. The pathology showed the following: A. Endocervix, curettage: Few superficial fragments of endocervical epithelium within normal limits; mucoinflammatory material. B. Cervix, 1 o'clock, biopsy: Inflamed cervical transformation zone and endocervical mucosa with reactive changes. C. Cervix, 6 o'clock, biopsy: Markedly inflamed cervical transformation zone mucosa with reactive changes. D. Cervix, 9 o'clock, biopsy: Markedly inflamed cervical transformation zone mucosa with reactive changes. E. Cervix, 11 o'clock, biopsy: Few superficial strips of endocervical epithelium within normal limits; no squamous epithelium present. COMMENT: The patient's current Pap is pending at the time of this report [facility] Medical History Palpitations No pertinent family history Arthritis GERD (gastroesophageal reflux disease) Surgical History H/O knee surgery Hx of breast reduction, elective S/P panniculectomy H/O gastric bypass Family History Mother Mental health disorder Substance abuse Maternal Aunt History of breast cancer Social History Household Members: Spouse and Children Both parents involved: No Caregiver staying overnight: No Housing: Apartment Are you a primary nurse wound care to a significant other at home: No Do you presently have visiting nurse or other home services: No 75 years or older and lives alone: No Patient Tobacco Use Status: Never used Tobacco e-Cigarette/Vaping Use: Never Used service: No Current occupational status: employed Current occupation: RN Cognitive needs: No Hearing needs: No Vision needs: No Review of Systems Const All systems reviewed & are unremarkable except as noted in HPI and below Reports as per HPI and Reports no additional complaints GI Reports no additional complaints Reports no additional complaints Telehealth Telehealth Telehealth Platform: Telephone Location of provider rendering services: practice address Location of patient: address on file Patient Identification confirmed using: Name, : Yes Telehealth method: video Patient verbally consented to treatment: Yes Patient verbally consented to billing insurance company: Yes Patient informed of any privacy concerns related to visit: Yes Minutes spent on Phone/Video with Pt.: 1 Assessment & Plan Assessment & Plan (1) Abnormal cervix finding: Code(s): N88.9 - Noninflammatory disorder of cervix uteri, unspecified Category: Medical Plan: Discussed with the patient the results of the pathology, the patient was reassured, recommended follow-up for annual exam. All questions answered, the patient verbalized understanding. I spent a total of 20 minutes reviewing the chart, talking to the patient via video and documenting in the medical record. Coding Level of Care Code Tele Est Pt Level 1 (87663) Diagnoses Abnormal cervix finding N88.9
== END 2024-07-04 15:20 | disposition home or self-care (01) ==
LOC: HO.HWS 14:39
PROVIDERS: PCP Nurse Practitioner Family; Visit Provider Obstetrics & Gynecology
DX: N88.9 Noninflammatory disorder of cervix uteri, unspecified (principal)
CPT/HCPCS: 99211

== ENCOUNTER → 2024-07-04 14:39 | Outpatient (BNVA) | payer OTHER, SELFPAY | PROVIDERS: PCP Nurse Practitioner Family; Visit Provider Obstetrics & Gynecology ==

== ENCOUNTER 2024-12-18 16:41 | Outpatient (REF) | payer OTHER, SELFPAY ==
[2024-12-18 17:12] LABS: Hematocrit 35.6 % (37.0-47.0); Hemoglobin 11.0 g/dl (12.0-16.0); Mean Corpuscular HGB Conc 30.9 g/dl (31.0-35.0); Mean Corpuscular Hemoglobin 24.0 pg (27.0-33.0); Mean Corpuscular Volume 77.7 fL (80.0-98.0); NRBC Abs Auto 0.000 X10*3/uL (0.0-0.012); NRBC Pct Auto 0.0 /100WBC (0.0-0.2); Platelet Count 322 X10*3/uL (160-400); Red Blood Count 4.58 X10*6/uL (4.20-5.50); White Blood Count 6.5 X10*3/uL (4.8-10.8)
[2024-12-18 18:00] LABS: Iron 19 mcg/dL (30-160); Percent Iron Saturation 5 % (15-50); Total Iron Binding Capacity 381 mcg/dL (228-428); Unsaturated Iron Binding 362 ug/dL
== END 2024-12-18 16:42 | disposition home or self-care (01) ==
LOC: HO.LAB 16:41
PROVIDERS: PCP Nurse Practitioner Family; Visit Provider Nurse Practitioner Family
DX: E55.9 Vitamin D deficiency, unspecified (principal); D50.8 Other iron deficiency anemias
CPT/HCPCS: 36415; 82306; 83540; 85027